=== PATIENT | female | born 1955 ===

== ENCOUNTER 2023-03-11 18:11 | Emergency (ER) | payer OTHER ==
[~2023-03-11] VITALS: Ht 170.2 cm; Wt 62.1 kg
== END 2023-03-11 19:51 | disposition home or self-care (01) ==
LOC: ER 18:13
DX: S70.12XA Contusion of left thigh, initial encounter (principal); W18.39XA Other fall on same level, initial encounter; Y93.89 Activity, other specified; Y92.89 Other specified places as the place of occurrence of the external cause